=== PATIENT | male | born 1930 | race Caucasian/White ===

== ENCOUNTER 2017-02-14 14:56 | Emergency (ER) | payer MEDICARE, OTHER ==
--- NOTE | 2017-02-14 15:00 | ED Physician Documentation ---
PD HPI ABD PAIN - Stated complaint Stated Complaint: ABD PAIN - History obtained from History obtained from: Patient, Family (son) - History of Present Illness Timing - onset: How many days ago (3) Similar symptoms before: Diagnosis (Constipation) - Additional information Additional information: The patient is an 86-year-old male who presents stating "I'm blocked up." He has been using MiraLAX and Citrucel for the past 2 days, without relief. He has had no bowel movement for the past 3 days. He denies abdominal pain, nausea or vomiting, fever, or dysuria. He has a history of similar symptoms for which he was seen in an emergency department in [place] 2 weeks ago, and underwent an enema. He has recently moved to [place] from [place] with his son. It was on the trip from [place] that they stopped in the emergency department in [place]. Review of Systems Constitutional: denies: Fever Nose: denies: Congestion Throat: denies: Sore throat Cardiac: denies: Chest pain / pressure Respiratory: denies: Dyspnea, Cough GI: reports: Constipation. denies: Abdominal Pain, Nausea, Vomiting : denies: Dysuria Skin: denies: Rash Musculoskeletal: denies: Back pain Neurologic: denies: Focal weakness, Numbness, Headache PD PAST MEDICAL HISTORY - Past Medical History Neuro: Dementia, Other (subdural hematoma) Endocrine/Autoimmune: HyPOthyroidism - Present Medications Home Medications: Ambulatory Orders Medication Instructions Recorded Confirmed Dorzolamide/Timolol/Pf [Cosopt Pf 02/14/17 Eye Drops] Levothyroxine [Synthroid] 50 mcg DAILY 02/14/17 02/14/17 Magnesium Citrate 296 ml PO ONCE PRN #1 solution 02/14/17 Methazolamide [Neptazane] 1 tab BID 02/14/17 02/14/17 Pilocarpine 4% Ophth Drops [Isopto 02/14/17 Carpine 4% Ophth Drops] Polyethylene Glycol 3350 [Miralax] 1 each PRN 02/14/17 - Allergies Allergies/Adverse Reactions: Allergies Allergy/AdvReac Type Severity Reaction Status Date / Time phenytoin sodium * Allergy Unknown Verified 02/14/17 15:06 [From Dilantin] phenytoin sodium extended * Allergy Unknown Verified 02/14/17 15:06 [From Dilantin] - Living Situation Living Situation: reports: With family Living Arrangement: reports: At home PD ED PE NORMAL - Vitals Vital signs reviewed: Yes (normal) - General General: Alert and oriented X 3, No acute distress, Well developed/nourished - HEENT HEENT: Atraumatic - Neck Neck: No adenopathy, No JVD - Cardiac Cardiac: RRR, No murmur - Respiratory Respiratory: No respiratory distress, Clear bilaterally - Abdomen Abdomen: Soft, Non tender, Non distended - Back Back: No CVA TTP - Derm Derm: No rash - Extremities Extremities: No edema, No calf tenderness / cord - Neuro Neuro: Alert and oriented X 3, No motor deficit, No sensory deficit, Normal speech Results - Vitals Vitals: Vital Signs - 24 hr 02/14/17 02/14/17 02/14/17 15:01 15:06 16:22 Temperature 36.7 C Heart Rate 80 60 Respiratory 18 16 Rate Blood Pressure 102/87 H 164/86 H O2 Saturation 99 97 Oxygen O2 Source Room air - Rads (name of study) 1-view abdomen Radiology: Prelim report reviewed, EMP read contemporaneously, See rad report ( Normal one-view abdominal x-ray, with moderate stool, and normal bowel gas pattern.) PD MEDICAL DECISION MAKING - ED course Complexity details: reviewed results, re-evaluated patient, considered differential, d/w patient, d/w family ED course: The patient's presentation is consistent with slow bowel transit with constipation. There is no evidence of bowel obstruction or fecal impaction. KUB is essentially normal, revealing only moderate stool in the colon. Treatment in the emergency department included administration of Fleet's enema, which resulted in moderate evacuation of stool. I discussed with the patient and his son symptomatic treatment, outpatient follow-up, as well as potentially worrisome signs or symptoms that should prompt reevaluation in the emergency department. The patient requested magnesium citrate for future use if needed. Departure - Departure Disposition: 01 Home, Self Care Clinical Impression: Constipation Qualifiers: Constipation type: unspecified constipation type Qualified Code(s): K59.00 - Constipation, unspecified Condition: Stable Instructions: ED Constipation Follow-Up: Delgado Montenegro MD [Primary Care Provider] - Prescriptions: Magnesium Citrate 296 ml PO ONCE PRN #1 solution PRN Reason: Constipation Comments: Drink plenty of fluids. You can use magnesium citrate as prescribed if needed for constipation. Follow up with your primary physician as planned. Return to the emergency department if you develop increasing abdominal pain, vomiting, fever, or otherwise worsening symptoms. Discharge Date/Time: 02/14/17 16:28
--- NOTE | 2017-02-14 16:04 | XRAY Preliminary Report ---
Exam: XR Abdomen 1 View IMPRESSION: Normal 1-view abdomen x-ray. [facility] SITE ID: [id number]
--- NOTE | 2017-02-14 16:10 | XRAY Report ---
EXAM: ABDOMEN RADIOGRAPHY EXAM DATE: 02/14/2017 03:57 PM. CLINICAL HISTORY: Constipation. COMPARISON: None. TECHNIQUE: 2 images, one view. FINDINGS: Bowel Gas Pattern: Within normal limits. No dilated loops. Other: Marked degenerative changes L4-L5 and L5-S1. Mild degenerative changes both hips. IMPRESSION: Normal 1-view abdomen x-ray. [facility] Referring Provider Line: [phone] SITE ID: [id number]
[2017-02-14] MEDS ORDERED: MAGNESIUM CITRATE 296 ML BOTTLE PO STA (16:17)
[2017-02-14] MEDS ORDERED: MAGNESIUM CITRATE 296 ML BOTTLE ONE (16:20)
[2017-02-14 16:25] VITALS: BP 164/86
== END 2017-02-14 16:28 | disposition home or self-care (01) ==
LOC: ED 14:56
DX: K59.00 Constipation, unspecified (principal); F03.90 Unspecified dementia, unspecified severity, without behavioral disturbance, psychotic disturbance, mood disturbance, and anxiety; E03.9 Hypothyroidism, unspecified
CPT/HCPCS: 74000; 99283; A9270